=== PATIENT | male | born 1970 | race Caucasian/White ===

== ENCOUNTER 2016-07-09 23:25 | Inpatient (IN) | payer MEDICAID ==
[~2016-07-09] VITALS: Ht 160 cm; Wt 63.5 kg
[2016-07-09 23:42] VITALS: BP 145/110
[2016-07-09] MEDS ORDERED: ORE25 PO (23:50)
--- NOTE | 2016-07-10 00:40 | NUR ---
Patient ambulated to bed 04.
--- NOTE | 2016-07-10 00:53 | NUR ---
Dr. Almendarez evaluating patient at bedside.
--- NOTE | 2016-07-10 00:54 | NUR ---
PATIENT PRESENTS TO ED WITH SOB . PT STATES HE ALSO HAS NOTICED BL LEG EDEMA . DENIES N/V/D; SKIN IS PINK/WARM/DRY; AAOX4 WITH EVEN AND STEADY GAIT; LUNGS CLEAR BL; HR EVEN AND REGULAR; PT DENIES ANY FEVER, CP, SOB, OR COUGH AT THIS TIME; PATIENT STATES PAIN OF 0/10 AT THIS TIME; VSS; PATIENT POSITIONED FOR COMFORT; HOB ELEVATED; BEDRAILS UP X2; BED DOWN. ER MD MADE AWARE OF PT STATUS. FAMILY AT BEDSIDE AT THIS TIME
[2016-07-10] MEDS ORDERED: SODIUM CHLORIDE FLUSH 10 ML SYR IVF ONE (01:00)
[2016-07-10] MEDS ORDERED: ASPIRIN 81 MG TAB.CHEW PO ONE (01:00)
[2016-07-10] MEDS ORDERED: FUROSEMIDE 40 MG/4 ML VIAL IVP ONE (01:00)
[2016-07-10] MEDS ORDERED: NITROGLYCERIN 2% 1 GM PKT TP ONE (01:00)
[2016-07-10] MEDS ORDERED: CAPTOPRIL 12.5 MG TAB PO ONE (01:00)
[2016-07-10 01:17] LABS: BASOPHILS # (AUTO) 0.2 K/uL (0.00-0.22); EOSINOPHILS # (AUTO) 0.1 K/uL (0-0.4); EOSINOPHILS % (AUTO) 1.8 % (0.0-4.0); MONOCYTES # (AUTO) 0.2 K/uL (0.8-1.0)
[2016-07-10 01:20] LABS: BASOPHILS % (AUTO) 2.4 % (0.0-2.0); HEMATOCRIT 42.7 % (36-52); HEMOGLOBIN 13.8 g/dL (12.0-18.0); LYMPHOCYTES # (AUTO) 1.8 K/uL (2.0-11.5); MEAN CORPUSCULAR HEMOGLOBIN 30 pg (27-31); MEAN CORPUSCULAR HGB CONC 32 g/dL (33-37); MEAN CORPUSCULAR VOLUME 92 fL (80-94); MONOCYTES % (AUTO) 3.2 % (1.7-9.3); NEUTROPHILS # (AUTO) 5.3 K/uL (1.8-7.7); NEUTROPHILS % (AUTO) 68.7 % (42.2-75.2); PLATELET COUNT (AUTO) 241 K/uL (140-450); RED BLOOD CELL COUNT(AUTO) 4.66 MIL/uL (4.20-6.10); WHITE BLOOD COUNT (AUTO) 7.6 K/uL (4.8-10.8)
[2016-07-10 01:34] LABS: LYMPHOCYTES % (AUTO) 23.9 % (20.5-51.1)
[2016-07-10 01:36] LABS: ALBUMIN 3.3 g/dL (3.4-5.0); ANION GAP 15.4 (8-16); CALCIUM 8.6 mg/dL (8.5-10.1); CARBON DIOXIDE 25.7 mmol/L (21-32); CREATININE 1.3 mg/dL (0.6-1.3); POTASSIUM 4.1 mmol/L (3.5-5.1); TOTAL BILIRUBIN 1.7 mg/dL (0.0-1.0)
[2016-07-10 01:46] LABS: INR 1.6 (0.8-1.2); PARTIAL THROMBOPLASTIN TIME 28.1 secs (22-35.6)
--- NOTE | 2016-07-10 02:42 | NUR ---
Patient will be admitted to care of DR. RANDALL. Admited to TELE. Will go to room 120B. Belongings list completed. Report to KANE BLAS.
--- NOTE | 2016-07-10 03:01 | NUR ---
Pt report given to KANE BLAS. Transfer of care at this time.
[2016-07-10 03:04] VITALS: BP 147/98
--- NOTE | 2016-07-10 03:04 | NUR ---
RECEIVED REPORT FROM ED RN FOR CONTINUITY OF CARE. PATIENT IS A&OX4 PARAGUAYAN SPEAKING, DISCUSSED PLAN OF CARE WITH PATIENT AND FAMILY MEMBERS AT BEDSIDE, VERBALIZED UNDERSTANDING. SHIFT ASSESSMENT DONE, VS TAKEN, STABLE AT THIS TIME. NO S/S OF RESPIRATORY DISTRESS NOTED ON ROOM AIR. PATIENT DENIES PAIN AT THIS TIME. IV TO RT AC 20 GAUGE PATENT AND FLUSHED. SKIN INTACT, WITH SMALL SCAB TO RT HUBBARD. URINAL AT BEDSIDE. MRSA COLLECTED AND WRISTBANDS APPLIED. SAFETY PRECAUTIONS ENFORCED. PT ORIENTED TO ROOM. CALL LIGHT PLACED WITHIN REACH AND PT ENCOURAGED TO USE FOR ASSISTANCE. WILL CONTINUE TO MONITOR
[2016-07-10] MEDS ORDERED: HYDROcodone/APAP 5/325 MG 1 TAB TAB PO PRN (03:30)
[2016-07-10] MEDS ORDERED: MORPHINE SULFATE 2 MG/ML SYR IVP PRN (03:30)
[2016-07-10] MEDS ORDERED: ACETAMINOPHEN 325 MG TAB PO PRN (03:30)
[2016-07-10] MEDS ORDERED: ONDANSETRON 4 MG/2 ML VIAL IVP PRN (03:30)
[2016-07-10] MEDS ORDERED: ALBUTEROL SULFATE/IPRATROPIU 3 ML SOL IH PRN (03:45)
--- NOTE | 2016-07-10 05:00 | NUR ---
PATIENT IS SLEEPING. NO S/S OF DISTRESS OR DISCOMFORT NOTED. UPDATED PATIENT ON PLAN OF CARE. WILL CONTINUE TO MONITOR.
--- NOTE | 2016-07-10 06:29 | NUR ---
PT UP TO USE RESTROOM, VOIDED. PATIENT DENIES ANY SHORTNESS OF BREATH. CALL LIGHT WITHIN REACH.
--- NOTE | 2016-07-10 07:22 | NUR ---
ENDORSED PATIENT TO DAY RN FOR CONTINUITY OF CARE, PATIENT IS IN STABLE CONDITION.
--- NOTE | 2016-07-10 07:22 | NUR ---
RECEIVED REPORT FROM NIGHT NURSE. PT IS AAOX4 AZERI SPEAKING. ON ROOM AIR, IV TO RIGHT AC 22G SALINE LOCK PATENT AND INTACT. SKIN INTACT. PT STATES NO CHEST PAIN OR SOB AT THIS TIME. INITIAL ASSESSMENT COMPLETED. REVIEWED PLAN OF CARE WITH PT, PT VERBALIZED UNDERSTANDING. ALL SAFETY PRECAUTIONS MET. CALL LIGHT WITHIN REACH. WILL CONTINUE TO MONITOR.
[2016-07-10 07:31] LABS: MAGNESIUM 1.5 mg/dL (1.8-2.4); PHOSPHORUS 4.8 mg/dL (2.5-4.9)
--- NOTE | 2016-07-10 07:43 | NUR ---
PATIENT HAS BEEN SCREENED AND CATEGORIZED MODERATE NUTRITION RISK. PATIENT WILL BE SEEN WITHIN 3-5 DAYS OF ADMISSION. 07/12/16-07/14/[address]
[2016-07-10 08:00] VITALS: BP 154/99
[2016-07-10] MEDS ORDERED: FUROSEMIDE 40 MG/4 ML VIAL IVP SCH (09:00)
[2016-07-10] MEDS ORDERED: MAGNESIUM OXIDE 400 MG TAB PO SCH (09:30)
[2016-07-10] MEDS: CARVEDILOL 3.125 MG TAB PO SCH ×2 (09:35→20:41)
[2016-07-10] MEDS: LISINOPRIL 10 MG TAB PO SCH (09:35)
[2016-07-10] MEDS: HYDROCHLOROTHIAZIDE 25 MG TAB PO SCH (09:35)
--- NOTE | 2016-07-10 09:36 | NUR ---
DUE MEDICATIONS GIVEN, PT STATES NO CHEST PAIN OR SOB. INFORMED PT THAT LUNCH WILL BE HELD TO TO AN US. PT VERBALIZED UNDERSTANDING. ALL NEEDS MET. CALL LIGHT WITHIN REACH.
--- NOTE | 2016-07-10 09:45 | NUR ---
DAILY WT TAKEN 61.5KG
--- NOTE | 2016-07-10 10:05 | NUR ---
ECHO DONE NOTIFIED ABOUT PT EF AT 1037am
--- NOTE | 2016-07-10 11:56 | NUR ---
CHECKED IN ON PT. PT CURRENTLY RESTING IN BED. ALL NEEDS MET. CALL LIGHT WITHIN REACH. WILL CONTINUE TO MONITOR
[2016-07-10 12:00] VITALS: BP 146/87
[2016-07-10 12:05] LABS: APPEARANCE,URINE CLEAR (CLEAR); BILIRUBIN,URINE NEGATIVE (NEGATIVE); BLOOD, URINE TRACE-I (NEGATIVE); COLOR,URINE YELLOW (YELLOW); LEUKOCYTE ESTERASE ,URINE NEGATIVE (NEGATIVE); NITRITE, URINE NEGATIVE (NEGATIVE); PROTEIN,URINE NEGATIVE (NEGATIVE); UGLUCOSE NEGATIVE (NEGATIVE); UROBILINOGEN,URINE 0.2 EU/dL (0.2 - 1)
[2016-07-10 12:12] LABS: AMPHETAMINE, URINE NEG. ng/ml (NEG <=1000); BARBITURATE, URINE NEG. ng/ml (NEG <=200); BENZODIAZEPINE, URINE NEG. ng/mL (NEG <=200); CANNABINOID, URINE NEG. ng/mL (NEG <=50); COCAINE, URINE NEG. ng/mL (NEG <=300); OPIATE, URINE NEG. ng/mL (NEG <=2000); PHENCYCLIDINE SCREEN,URINE NEG. ng/mL (NEG <=25)
[2016-07-10 12:31] LABS: BACTERIA,URINE None Seen /HPF (None Seen); RBC,URINE 0-5 (RARE) /HPF (0-5); SQUAMOUS EPITHELIAL CELL,UR None Seen /LPF (0-3 (FEW)); WBC,URINE NONE SEEN /HPF (0-5)
--- NOTE | 2016-07-10 14:32 | NUR ---
PT CURRENTLY WALKING AROUND ROUND. PT STATES NO CHEST PAIN OR SOB. ALL NEEDS MET. CALL LIGHT WITHIN REACH. WILL CONTINUE TO MONITOR.
[2016-07-10 16:00] VITALS: BP 121/79
--- NOTE | 2016-07-10 16:21 | NUR ---
PT CURRENTLY RESTING IN BED. NO S/S OF RESPIRATORY DISTRESS NOTED. ALL NEEDS MET. CALL LIGHT WITHIN REACH. WILL CONTINUE TO MONITOR.
[2016-07-10] MEDS ORDERED: SPIRONOLACTONE 25 MG TAB PO SCH (18:00)
--- NOTE | 2016-07-10 18:23 | NUR ---
DUE MEDICATION GIVEN. PT CURRENTLY RESTING WATCHING TV. ALL NEEDS MET. CALL LIGHT WITHIN REACH.
--- NOTE | 2016-07-10 19:13 | NUR ---
ENDORSED PLAN OF CARE TO NIGHT NURSE, PT IN STABLE CONDITION.
--- NOTE | 2016-07-10 19:15 | NUR ---
RECEIVED REPORT FROM DAY RN FOR CONTINUITY OF CARE. PATIENT IS A&OX4, DISCUSSED PLAN OF CARE WITH PATIENT VERBALIZED UNDERSTANDING. SHIFT ASSESSMENT DONE, VS TAKEN, STABLE AT THIS TIME. NO S/S OF RESPIRATORY DISTRESS NOTED ON ROOM AIR. PATIENT DENIES PAIN. IV TO RT AC 20 GAUGE PATENT AND FLUSHED. SKIN INTACT.SAFETY PRECAUTIONS ENFORCED. CALL LIGHT PLACED WITHIN REACH. FAMILY MEMBERS AT BEDSIDE. WILL CONTINUE TO MONITOR
[2016-07-10 20:00] VITALS: BP 103/67
[2016-07-10] MEDS: ATORVASTATIN 20 MG TAB PO SCH (20:34)
--- NOTE | 2016-07-10 20:34 | NUR ---
DUE MEDICATION ADMINISTERED, TOLERATED WELL. ALL NEEDS MET AT THIS TIME. WILL CONTINUE TO MONITOR.
--- NOTE | 2016-07-10 22:00 | NUR ---
PATIENT IS SITTING AT EDGE OF BED WATCHING TV. NO S/S OF DISTRESS OR DISCOMFORT NOTED. CALL LIGHT WITHIN REACH.
[2016-07-11] VITALS: BP 107/69
--- NOTE | 2016-07-11 00:03 | NUR ---
VS TAKEN, STABLE. PT UP TO USE THE RESTROOM. CALL LIGHT IN REACH. WILL CONTINUE TO MONITOR.
--- NOTE | 2016-07-11 02:05 | NUR ---
PT IS SLEEPING. NO S/S OF DISTRESS OR DISCOMFORT NOTED. CALL LIGHT WITHIN REACH.
[2016-07-11 04:00] VITALS: BP 140/83
--- NOTE | 2016-07-11 04:22 | NUR ---
VS TAKEN, STABLE. ALL NEEDS MET AT THIS TIME. WILL CONTINUE TO MONITOR.
--- NOTE | 2016-07-11 06:00 | NUR ---
PT IS SITTING UP IN BED, NO S/S IF DISTRESS OR DISCOMFORT AT THIS TIME. CALL LIGHT WITHIN REACH.
[2016-07-11 06:04] LABS: BASOPHILS # (AUTO) 0.1 K/uL (0.00-0.22); BASOPHILS % (AUTO) 1.7 % (0.0-2.0); EOSINOPHILS # (AUTO) 0.3 K/uL (0-0.4); EOSINOPHILS % (AUTO) 4.5 % (0.0-4.0); HEMATOCRIT 40.4 % (36-52); HEMOGLOBIN 13.4 g/dL (12.0-18.0); LYMPHOCYTES # (AUTO) 1.6 K/uL (2.0-11.5); LYMPHOCYTES % (AUTO) 20.2 % (20.5-51.1); MEAN CORPUSCULAR HEMOGLOBIN 30 pg (27-31); MEAN CORPUSCULAR HGB CONC 33 g/dL (33-37); MEAN CORPUSCULAR VOLUME 91 fL (80-94); MONOCYTES # (AUTO) 0.7 K/uL (0.8-1.0); MONOCYTES % (AUTO) 9.1 % (1.7-9.3); NEUTROPHILS % (AUTO) 64.5 % (42.2-75.2); PLATELET COUNT (AUTO) 188 K/uL (140-450); RED BLOOD CELL COUNT(AUTO) 4.45 MIL/uL (4.20-6.10); WHITE BLOOD COUNT (AUTO) 7.7 K/uL (4.8-10.8)
[2016-07-11 06:26] LABS: ANION GAP 10.5 (8-16); CALCIUM 8.6 mg/dL (8.5-10.1); CREATININE 1.1 mg/dL (0.6-1.3); POTASSIUM 3.5 mmol/L (3.5-5.1)
[2016-07-11 06:35] LABS: MAGNESIUM 1.7 mg/dL (1.8-2.4); PHOSPHORUS 4.5 mg/dL (2.5-4.9)
--- NOTE | 2016-07-11 07:29 | NUR ---
ENDORSED PATIENT TO ELIU BLAS FOR CONTINUITY OF CARE, PATIENT IS IN STABLE CONDITION.
--- NOTE | 2016-07-11 07:30 | NUR ---
RECEIVED REPORT FROM WAN MIDDLETON. PT IS SITTING UP IN BED, A/OX4, IV IS ON THE RT AC, PATENT AND INTACT, SKIN IS INTACT, NO S/S OF RESPIRATORY DISTRESS OR DISCOMFORT NOTED, DISCUSSED PLAN OF CARE WITH PT, PT VERBALIZED UNDERSTANDING, SAFETY/FALL PRECAUTIONS IN PLACE, ALL NEEDS ARE MET AT THIS TIME, CALL LIGHT IS WITHIN REACH, WILL CONTINUE TO MONITOR.
[2016-07-11 08:00] VITALS: BP 130/87
[2016-07-11] MEDS ORDERED: DEXTROSE 50% 50 ML SYR IVP PRN (08:15)
[2016-07-11] MEDS ORDERED: INSULIN LISPRO SLIDING SCALE 100 UNITS/ML VIAL SUBQ PRN (08:15)
[2016-07-11] MEDS ORDERED: metFORMIN 500 MG TAB PO SCH ×2 (08:30→17:00)
[2016-07-11] MEDS: HYDROCHLOROTHIAZIDE 25 MG TAB PO SCH (08:41)
[2016-07-11] MEDS: LISINOPRIL 10 MG TAB PO SCH (08:41)
[2016-07-11] MEDS: CARVEDILOL 3.125 MG TAB PO SCH ×2 (08:42→20:20)
[2016-07-11] MEDS: ASPIRIN 81 MG TAB.CHEW PO SCH (08:42)
[2016-07-11] MEDS: SPIRONOLACTONE 25 MG TAB PO SCH (08:42)
--- NOTE | 2016-07-11 08:42 | NUR ---
DUE MEDICATIONS GIVEN, PT TOLERATED WELL. NO S/S OF RESPIRATORY DISTRESS OR DISCOMFORT NOTED, CALL LIGHT WITHIN REACH, WILL CONTINUE TO MONITOR.
[2016-07-11] MEDS ORDERED: MAGNESIUM OXIDE 400 MG TAB PO SCH (09:00)
[2016-07-11 10:08] LABS: HEPATITIS A ANTIBODY IGM Negative (Negative); HEPATITIS B CORE AB TOTAL Negative (Negative); HEPATITIS B CORE, IGM Negative (Negative); HEPATITIS B SURFACE AB Non Reactive (.); HEPATITIS B SURFACE ANTIGEN Negative (Negative); HEPATITIS C VIRUS ANTIBODY <0.1 s/co ratio (0.0-0.9)
--- NOTE | 2016-07-11 10:39 | NUR ---
PT IS STANDING WALKING DOWN THE GERMAN, ALL NEEDS ARE MET AT THIS TIME, WILL CONTINUE TO MONITOR.
[2016-07-11] MEDS: BLOOD GLUCOSE MONITORING 1 DEV DEV FS SCH ×3 (11:54→20:20)
[2016-07-11 12:00] VITALS: BP 106/70
--- NOTE | 2016-07-11 12:15 | NUR ---
PT IS SITTING UP IN BED WATCHING TV, NO S/S OF RESPIRATORY DISTRESS OR DISCOMFORT NOTED, CALL LIGHT WITHIN REACH, WILL CONTINUE TO MONITOR.
--- NOTE | 2016-07-11 14:12 | NUR ---
PT IS SITTING ON CHAIR AT BEDSIDE WATCHING TV, CALL LIGHT WITHIN REACH, WILL CONTINUE TO MONITOR.
[2016-07-11 14:22] LABS: HEPATITIS A ANTIBODY TOTAL Positive (Negative)
[2016-07-11 16:00] VITALS: BP 115/76
--- NOTE | 2016-07-11 16:18 | NUR ---
PT SITTING UP IN BED, FAMILY IS AT BEDSIDE, NO S/S OF RESPIRATORY DISTRESS OR DISCOMFORT NOTED, WILL CONTINUE TO MONITOR.
[2016-07-11] MEDS: metFORMIN 500 MG TAB PO SCH (17:01)
--- NOTE | 2016-07-11 19:06 | NUR ---
ENDORSED PT TO WAN DOMINGO. FOR CONTINUITY OF CARE. PT STABLE AT THIS TIME.
--- NOTE | 2016-07-11 19:28 | NUR ---
RECEIVED REPORT FROM WAN NOWAK, AT BEDSIDE. INITIAL ASSESSMENT AND BODY CHECK DONE. PATIENT AAO X 4, ABLE TO FOLLOW COMMAND AND MAKE NEEDS KNOWN AND AMBULATORY BY SELF WITH STEADY GAIT. PATIENT CURRENTLY SITTING UP ON THE BED AND TALKING TO HIS FAMILY. NO S/S OF DISTRESS OR SOB NOTED. SKIN WARM/DRY TO TOUCH WITH NORMAL COLOR AND INTACT. DENIED OF ANY PAIN/DISCOMFORT AT THIS TIME. DISCUSSED PLAN OF CARE, PAIN MANAGEMENT AND MEDICATION REGIMEN WITH PATIENT/FAMILY AND ALL VERBALIZED UNDERSTANDING. PLACED PATIENT ON SAFETY PRECAUTIONS AND WILL CONTINUE TO MONITOR. CALL LIGHT LEFT WITHIN REACH.
[2016-07-11 19:32] VITALS: BP 117/84
[2016-07-11] MEDS: ATORVASTATIN 20 MG TAB PO SCH (20:20)
--- NOTE | 2016-07-11 21:00 | NUR ---
ADMINISTERED DUE MEDICATIONS MD'S ORDERED WITH EDUCATION GIVEN. PATIENT COMPLYING WITH MEDICATIONS AND TOLERATED WELL. KEPT PATIENT IN COMFORTABLE POSITION/WARM AND WILL CONTINUE TO MONITOR.
--- NOTE | 2016-07-11 22:00 | NUR ---
ROUNDS MADE, SEEN PATIENT RESTED COMFORTABLY IN BED WITHOUT S/S OF DISTRESS NOTED. WILL CONTINUE TO MONITOR.
[2016-07-12] VITALS: BP 111/69
--- NOTE | 2016-07-12 00:17 | NUR ---
PATIENT ASLEEP QUIETLY IN BED, EASILY AROUSED AND REMAINED IN STABLE CONDITION. WILL CONTINUE TO MONITOR.
--- NOTE | 2016-07-12 03:58 | NUR ---
PATIENT IS CLINICALLY STABLE WITH UNCHANGED V/S AND NO ANY COMPLAINT MADE. WILL CONTINUE TO MONITOR.
[2016-07-12 04:00] VITALS: BP 120/83
[2016-07-12] MEDS: BLOOD GLUCOSE MONITORING 1 DEV DEV FS SCH ×2 (05:35→11:30)
[2016-07-12 06:19] LABS: BASOPHILS # (AUTO) 0.1 K/uL (0.00-0.22); BASOPHILS % (AUTO) 1.8 % (0.0-2.0); EOSINOPHILS # (AUTO) 0.4 K/uL (0-0.4); EOSINOPHILS % (AUTO) 5.8 % (0.0-4.0); HEMATOCRIT 38.7 % (36-52); HEMOGLOBIN 12.9 g/dL (12.0-18.0); LYMPHOCYTES # (AUTO) 1.9 K/uL (2.0-11.5); LYMPHOCYTES % (AUTO) 29.3 % (20.5-51.1); MEAN CORPUSCULAR HEMOGLOBIN 30 pg (27-31); MEAN CORPUSCULAR HGB CONC 33 g/dL (33-37); MEAN CORPUSCULAR VOLUME 90 fL (80-94); MONOCYTES # (AUTO) 0.6 K/uL (0.8-1.0); NEUTROPHILS # (AUTO) 3.5 K/uL (1.8-7.7); NEUTROPHILS % (AUTO) 54.1 % (42.2-75.2); PLATELET COUNT (AUTO) 189 K/uL (140-450); RED BLOOD CELL COUNT(AUTO) 4.31 MIL/uL (4.20-6.10); RED CELL DISTRIBUTION WIDTH 14.8 % (11.6-13.7); WHITE BLOOD COUNT (AUTO) 6.5 K/uL (4.8-10.8)
[2016-07-12 06:46] LABS: MAGNESIUM 1.7 mg/dL (1.8-2.4); PHOSPHORUS 4.3 mg/dL (2.5-4.9)
--- NOTE | 2016-07-12 07:00 | NUR ---
PATIENT RESTED WELL THROUGHOUT THE SHIFT AND REMAINED IN STABLE CONDITION WITHOUT APPARENT DISTRESS NOTED. ENDORSED PLAN OF CARE TO WAN NOWAK.
--- NOTE | 2016-07-12 07:10 | NUR ---
RECEIVED REPORT FROM WAN DOMINGO. PT IS A/OX4, SKIN INTACT, IV RT AC, PATENT AND INTACT, NO S/S OF RESPIRATORY DISTRESS OR DISCOMFORT NOTED, DISCUSSED PLAN OF CARE WITH PT, PT VERBALIZED UNDERSTANDING, FALL/SAFETY PRECAUTIONS IN PLACE, NO S/S OF RESPIRATORY DISTRESS OR DISCOMFORT NOTED, CALL LIGHT WITHIN REACH, WILL CONTINUE TO MONITOR.
[2016-07-12 07:42] LABS: ANION GAP 11.2 (8-16); CALCIUM 8.6 mg/dL (8.5-10.1); CARBON DIOXIDE 31.1 mmol/L (21-32); CREATININE 1.1 mg/dL (0.6-1.3); POTASSIUM 4.3 mmol/L (3.5-5.1)
[2016-07-12 08:00] VITALS: BP 120/84
[2016-07-12] MEDS: HYDROCHLOROTHIAZIDE 25 MG TAB PO SCH (09:08)
[2016-07-12] MEDS: metFORMIN 500 MG TAB PO SCH (09:08)
[2016-07-12] MEDS: ASPIRIN 81 MG TAB.CHEW PO SCH (09:08)
[2016-07-12] MEDS: CARVEDILOL 3.125 MG TAB PO SCH (09:09)
[2016-07-12] MEDS: LISINOPRIL 10 MG TAB PO SCH (09:09)
[2016-07-12] MEDS: SPIRONOLACTONE 25 MG TAB PO SCH (09:10)
--- NOTE | 2016-07-12 09:30 | NUR ---
PT SITTING IN BED WATCHING TV.
--- NOTE | 2016-07-12 11:30 | NUR ---
PT SITTING IN BED, FAMILY IS AT BEDSIDE, CALL LIGHT WITHIN REACH, WILL CONTINUE TO MONITOR.
[2016-07-12 12:00] VITALS: BP 117/72
[2016-07-12] MEDS ORDERED: CARV3.122 PO (13:22)
[2016-07-12] MEDS ORDERED: ASPI81CT27 PO (13:22)
[2016-07-12] MEDS ORDERED: SPIR25TA PO (13:22)
[2016-07-12] MEDS ORDERED: METF500T4 PO (13:22)
[2016-07-12] MEDS ORDERED: ATOR20TA40 PO (13:22)
[2016-07-12] MEDS ORDERED: LISI10TA11 PO (13:22)
--- NOTE | 2016-07-12 13:45 | NUR ---
PT SITTING IN BED, TALKING TO FAMILY MEMBER, NO S/S OF RESPIRATORY DISTRESS OR DISCOMFORT NOTED, CALL LIGHT WITHIN REACH, WILL CONTINUE TO MONITOR.
[2016-07-12] MEDS ORDERED: MAGNESIUM OXIDE 400 MG TAB PO SCH (14:42)
--- NOTE | 2016-07-12 15:30 | NUR ---
PT STABLE UPON DISCHARGE, ID WRIST REMOVED, IV REMOVED, CATHETER TIP INTACT.
== END 2016-07-12 15:00 | disposition home or self-care (01) | DRG 194 ==
LOC: MED 23:25 → MTU 07-10 02:17
PROVIDERS: ADMIT Family Medicine; ATTEND Family Medicine
DX: I11.0 Hypertensive heart disease with heart failure (principal); N17.0 Acute kidney failure with tubular necrosis; E44.0 Moderate protein-calorie malnutrition; E11.65 Type 2 diabetes mellitus with hyperglycemia; E83.42 Hypomagnesemia; D68.69 Other thrombophilia; I50.43 Acute on chronic combined systolic (congestive) and diastolic (congestive) heart failure; E80.6 Other disorders of bilirubin metabolism; I16.0 Hypertensive urgency; F10.21 Alcohol dependence, in remission; R74.0 Nonspecific elevation of levels of transaminase and lactic acid dehydrogenase [LDH]; I42.6 Alcoholic cardiomyopathy; Z79.899 Other long term (current) drug therapy; Z68.24 Body mass index [BMI] 24.0-24.9, adult
CPT/HCPCS: 36415; 71010; 76705; 80048; 80053; 80305; 81001; 82948; 83036; 83735; 83880; 84100; 84484; 85025; 85610; 85730; 86704; 86706; 86708; 86709; 86803; 87081; 87340; 93005; 93925; 93970; 96374; 99285; J1815; J1940; Q0092

== ENCOUNTER 2018-12-25 00:49 | Inpatient (IN) | payer MEDICAID ==
[~2018-12-25] VITALS: Ht 160 cm; Wt 72.6 kg
[~2018-12-25 00:49] MED LIST: ASPI81CT95 PO; ATOR20TA40 PO; CARV3.122 PO; LISI10TA11 PO; METF-988 PO; ORE25 PO; SPIR25TA PO
[2018-12-25 00:53] VITALS: BP 117/71
--- NOTE | 2018-12-25 01:02 | NUR ---
PT TAKEN TO BED 2
[2018-12-25] MEDS ORDERED: SODIUM CHLORIDE FLUSH 10 ML SYR IVF STA (01:04)
--- NOTE | 2018-12-25 01:10 | NUR ---
48Y MALE, BIB FAMILY TO ED C/O DIFFICULTY BREATHING X1 WEEK AND WORSEN TODAY STATING HE FEELS LIKE HE'S SUFFOCATING WHEN HE TRIES TO BREATHE. PT REPORTED HX HTN/CHF AND HAS NOT TAKEN HIS MEDICATIONS FOR 2-3 MONTHS. PT DENIES N/V/DIARRHEA/CONSTIPATION. DENIES FEVER/CHILLS, NO C/O PAIN. PT AAOX4, RR EVEN UNLABORED WITH O2 SATURATION AT 98%. BILAT LUNGS CLEAR TO AUSCULATATION. GCS 15, EDMD MADE AWARE,WILL CONTINUE TO MONITOR CLOSELY, BED LOCKED IN LOWEST POSITION, SIDERAIL UPX1.
--- NOTE | 2018-12-25 01:14 | NUR ---
EKG PERFORMED AT BEDSIDE
[2018-12-25 01:31] LABS: BASOPHILS # (AUTO) 0.1 K/uL (0.00-0.22); EOSINOPHILS # (AUTO) 0.2 K/uL (0-0.4); EOSINOPHILS % (AUTO) 2.9 % (0.0-4.0); HEMATOCRIT 42.4 % (36-52); HEMOGLOBIN 14.4 g/dL (12.0-18.0); LYMPHOCYTES # (AUTO) 2.3 K/uL (2.0-11.5); LYMPHOCYTES % (AUTO) 34.8 % (20.5-51.1); MEAN CORPUSCULAR HEMOGLOBIN 32 pg (27-31); MEAN CORPUSCULAR HGB CONC 34 g/dL (33-37); MEAN CORPUSCULAR VOLUME 95.6 fL (80-94); MONOCYTES # (AUTO) 0.4 K/uL (0.8-1.0); MONOCYTES % (AUTO) 5.7 % (1.7-9.3); NEUTROPHILS # (AUTO) 3.7 K/uL (1.8-7.7); NEUTROPHILS % (AUTO) 55.6 % (42.2-75.2); PLATELET COUNT (AUTO) 171 K/uL (140-450); RED BLOOD CELL COUNT(AUTO) 4.43 MIL/uL (4.20-6.10); RED CELL DISTRIBUTION WIDTH 13.4 % (11.6-13.7); WHITE BLOOD COUNT (AUTO) 6.7 K/uL (4.8-10.8)
[2018-12-25 01:43] LABS: ALBUMIN 3.6 g/dL (3.4-5.0); ANION GAP 14.2 (8-16); CARBON DIOXIDE 26.9 mmol/L (21-32); CREATININE 1.1 mg/dL (0.7-1.3); POTASSIUM 4.1 mmol/L (3.5-5.1); TOTAL BILIRUBIN 0.8 mg/dL (0.0-1.0)
--- NOTE | 2018-12-25 02:45 | NUR ---
Keli martinez in ED - 12/25/18 at 0259 by [facility] AT BEDSIDE.
[2018-12-25] MEDS ORDERED: HYDROcodone/APAP 7.5/325 MG 1 TAB PO PRN (03:25)
[2018-12-25] MEDS ORDERED: DOCUSATE SODIUM 100 MG GELCAP PO PRN (03:25)
[2018-12-25] MEDS ORDERED: MORPHINE SULFATE 2 MG/ML SYR IVP PRN (03:25)
[2018-12-25] MEDS ORDERED: ONDANSETRON 4 MG/2 ML VIAL IM/IVP PRN (03:25)
[2018-12-25] MEDS ORDERED: ACETAMINOPHEN 325 MG TAB PO PRN (03:25)
[2018-12-25] MEDS ORDERED: MORPHINE SULFATE 2 MG/ML SYR IV PRN (03:50)
[2018-12-25] MEDS ORDERED: NITROGLYCERIN 0.4 MG TAB SL PRN (03:50)
--- NOTE | 2018-12-25 03:50 | NUR ---
RECEIVED BEDSIDE REPORT FROM ED RN MARGI, FOR PT'S CONTINUITY OF CARE. PATIENT TRANSPORTED VIA GURNEY, AMBULATED TO BEDSIDE, ALERT, AWAKE, ORIENTED X 4, BENGALI SPEAKING BUT UNDERSTANDS A LITTLE BELARUSIAN, IS ON ROOM AIR, HAS RIGHT AC 20G SALINE LOCK, SKIN IS INTACT, PT DENIES PAIN AT THIS TIME. VS CHECKED AND CHARTED. EXPLAINED TO PT OPERATIONS SPECIALISTS ROUTINE, PT VERBALIZED UNDERSTANDING. BED IS ON LOW POSITION, SIDE RAILS ARE UP, AND CALL LIGHT IS WITHIN REACH. WILL MONITOR THROUGHOUT SHIFT.
--- NOTE | 2018-12-25 03:50 | NUR ---
Patient ADMITTED UNDER THE CARE OF DR. Govind CASTLE TO TELEMETRY UNIT ROOM 111B, BELONGINGS LIST COMPLETED. PT VSS, TRANSPORTED VIA GURNEY. BEDSIDE REPORT GIVEN TO WAN MARINA.
[2018-12-25 04:00] VITALS: BP 149/106
[2018-12-25] MEDS ORDERED: FUROSEMIDE 40 MG/4 ML VIAL IVP SCH (04:00)
--- NOTE | 2018-12-25 04:00 | NUR ---
PT COLLECTED URINE. SENT TO LAB.
[2018-12-25 04:03] LABS: PROTHROMBIN TIME 10.2 secs (10.8-13.4)
[2018-12-25] MEDS: NACL 0.9% 500 ML IV SCH (04:13)
--- NOTE | 2018-12-25 04:15 | NUR ---
ADMINISTERED SCHEDULED IV FLUID AND IV PUSH MEDICATION ORDERED. IV SITE PATENT AND INTACT. WILL CONTINUE TO MONITOR PT.
[2018-12-25] MEDS ORDERED: INSULIN LISPRO SLIDING SCALE 100 UNITS/ML VIAL SUBQ PRN (04:30)
[2018-12-25] MEDS ORDERED: DEXTROSE 50% 50 ML SYR IVP PRN (04:30)
[2018-12-25] MEDS ORDERED: CARV3.12 PO (05:00)
[2018-12-25] MEDS ORDERED: ATOR40TA40 PO (05:00)
[2018-12-25] MEDS ORDERED: ASPI-1718 PO (05:00)
[2018-12-25] MEDS ORDERED: SPIR25TA21 PO (05:00)
[2018-12-25] MEDS ORDERED: LISI10TA11 PO (05:00)
[2018-12-25 05:08] LABS: MAGNESIUM 1.9 mg/dL (1.8-2.4); PHOSPHORUS 4.2 mg/dL (2.5-4.9)
[2018-12-25 05:09] LABS: THYROID STIMULATING HORMONE 8.53 uIU/mL (0.34-3.74)
[2018-12-25] MEDS ORDERED: cefTRIAXone 1,000 MG VIAL ONE (05:42)
--- NOTE | 2018-12-25 06:15 | NUR ---
BLOOD GLUCOSE CHECKED AND CHARTED. NO COVERAGE NEEDED. PT HAS NO REACTION WITH IV CEFTRIAXONE 1ST DOSE. PT DENIES ANY PAIN AT THIS TIME. WILL ENDORSE TO AM SHIFT RN FOR PT'S CONTINUITY OF CARE.
[2018-12-25] MEDS: BLOOD GLUCOSE MONITORING 1 DEV DEV FS SCH ×4 (06:26→20:54)
--- NOTE | 2018-12-25 07:10 | NUR ---
RECEIVED BEDSIDE REPORT FROM THE CUSTOMIZER NURSE SALAS; PT IS ASLEEP AT THIS TIME, NO S/S OF ACUTE DISTRESS OR SOB NOTED. PT IS ON ROOM AIR. SKIN IS INTACT. IV SITE IS NOTED ON THE R AC 20 G, INFUSING NS 20 ML/HR. PT IS AMBULATORY AND ABLE TO MAKE NEEDS KNOWN. CALL LIGHT IS WITHIN REACH, WILL CONTINUE TO MONITOR.
--- NOTE | 2018-12-25 07:44 | NUR ---
PATIENT HAS BEEN SCREENED AND CATEGORIZED MODERATE NUTRITION RISK. PATIENT WILL BE SEEN WITHIN 3-5 DAYS OF ADMISSION. 12/27/[address]
[2018-12-25 08:00] VITALS: BP 136/94
--- NOTE | 2018-12-25 08:08 | NUR ---
THE FIELD MACHINIST NOTIFIED ME THAT SHE CAME TO DO PT'S ABD US, BUT THE PT HAD ALREADY EATEN HIS BREAKFAST. SHE ASKED TO HAVE HIM NPO FOR LUNCH SO THAT SHE CAN DO HIS US AROUND 2:00 - 2:30 PM. RESIDENT NOTIFIED TO PLACE PT NPO FOR LUNCH.
[2018-12-25 08:46] LABS: BARBITURATE, URINE NEGATIVE ng/ml (NEG <=200); BENZODIAZEPINE, URINE NEGATIVE ng/mL (NEG <=200); CANNABINOID, URINE POSITIVE ng/mL (NEG <=50); COCAINE, URINE NEGATIVE ng/mL (NEG <=300); OPIATE, URINE NEGATIVE ng/mL (NEG <=2000); PHENCYCLIDINE SCREEN,URINE NEGATIVE ng/mL (NEG <=25)
[2018-12-25] MEDS: SPIRONOLACTONE 25 MG TAB PO SCH (08:58)
[2018-12-25] MEDS: CARVEDILOL 3.125 MG TAB PO SCH ×2 (08:58→17:53)
[2018-12-25] MEDS: LISINOPRIL 10 MG TAB PO SCH (08:58)
[2018-12-25] MEDS: ASPIRIN 81 MG TAB.CHEW PO SCH (08:58)
[2018-12-25] MEDS ORDERED: ASPIRIN 81 MG TAB.CHEW PO SCH (09:00)
[2018-12-25] MEDS ORDERED: LISINOPRIL 5 MG TAB PO SCH (09:00)
[2018-12-25] MEDS ORDERED: METOPROLOL 50 MG TAB PO SCH (09:00)
[2018-12-25] MEDS ORDERED: CARVEDILOL 3.125 MG TAB PO SCH (09:00)
[2018-12-25] MEDS ORDERED: FUROSEMIDE 20 MG/2 ML VIAL IVP SCH (09:00)
[2018-12-25] MEDS ORDERED: SPIRONOLACTONE 25 MG PO SCH (09:00)
--- NOTE | 2018-12-25 09:07 | NUR ---
AM MEDS ADMINISTERED, PT TOLERATED WELL
[2018-12-25 09:19] LABS: APPEARANCE,URINE CLEAR (CLEAR); BILIRUBIN,URINE NEGATIVE (NEGATIVE); BLOOD, URINE NEGATIVE (NEGATIVE); COLOR,URINE YELLOW (YELLOW); LEUKOCYTE ESTERASE ,URINE NEGATIVE (NEGATIVE); NITRITE, URINE NEGATIVE (NEGATIVE); UGLUCOSE NEGATIVE (NEGATIVE)
--- NOTE | 2018-12-25 09:45 | NUR ---
PT SEEN BY DR. DOMINGUEZ
[2018-12-25 09:53] LABS: RBC,URINE 0 /HPF (0-5); WBC,URINE 0-5 /HPF (0-5)
--- NOTE | 2018-12-25 10:15 | NUR ---
WAS NOTIFIED BY LAB THAT PT'S LACTIC ACID IS 2.1. DR DOMINGUEZ IS AWARE.
--- NOTE | 2018-12-25 10:55 | NUR ---
PT IS SITTING UP IN BED, NO DISTRESS NOTED, VISITING WITH A RELATIVE. WILL CONTINUE TO MONITOR.
[2018-12-25 12:00] VITALS: BP 126/92
--- NOTE | 2018-12-25 14:45 | NUR ---
PT IS SITTING UP IN THE BED, NO DISTRESS NOTED. PT CONTINUING TO BE NPO FOR THE ABD ULTRASOUND.
[2018-12-25 16:00] VITALS: BP 131/88
--- NOTE | 2018-12-25 16:00 | NUR ---
PT IS HAVING ABD ULTRASOUND AT THIS TIME
[2018-12-25 17:41] LABS: CHOL/HDL RATIO 5.9 (1-4.5)
--- NOTE | 2018-12-25 19:20 | NUR ---
PT ENDORSED TO STUDY COORDINATOR NURSE IN STABLE CONDITION.
--- NOTE | 2018-12-25 19:25 | NUR ---
RECEIVED BEDSIDE REPORT FROM AM SHIFT RN OMAIRA, FOR PT'S CONTINUITY OF CARE. PT IS AWAKE, ALERT, ORIENTED X 4, WITH FAMILY MEMBERS AT BEDSIDE. PT IS ON ROOM AIR, IS ON FOAM GUN OPERATOR, HAS RIGHT AC 2G INFUSING WITH NS AT 20ML/HR, AMBULATING WITH NO DISTRESS, AND DENIES PAIN AT THIS TIME. PT TEACHING GIVEN TO PT AND FAMILY MEMBERS, BOTH VERBALIZED UNDERSTANDING. BED IS ON LOW POSITION, SIDE RAILS ARE UP, AND CALL LIGHT IS WITHIN REACH. EXPLAINED TO PT AND FAMILY MEMBERS POST ACUTE CARE NURSE PRACTITIONER ROUTINE AND THEY VERBALIZED UNDERSTANDING. WILL MONITOR PT THROUGHOUT SHIFT.
[2018-12-25 20:00] VITALS: BP 128/81
--- NOTE | 2018-12-25 20:50 | NUR ---
BLOOD GLUCOSE CHECKED AND CHARTED. NO COVERAGE NEEDED. ADMINISTERED SCHEDULED PO MEDICATION ORDERED. PT LYING DOWN AWAKE DENIES ANY PAIN AT THIS TIME. WILL CONTINUE TO MONITOR PT.
[2018-12-25] MEDS: ATORVASTATIN 20 MG TAB PO SCH (20:52)
[2018-12-25] MEDS ORDERED: SIMVASTATIN 40 MG TAB PO SCH (21:00)
[2018-12-25] MEDS ORDERED: NON-FORMULARY ITEM (Atorvastatin Calcium 1 TAB) PO SCH (21:00)
--- NOTE | 2018-12-25 23:26 | NUR ---
MADE ROUNDS. PT LYING DOWN ASLEEP WITH NO SIGNS OF DISTRESS. WILL CONTINUE TO MONITOR PT.
[2018-12-26] VITALS: BP 122/82
--- NOTE | 2018-12-26 00:20 | NUR ---
PT ASLEEP, WOKE UP FOR VITAL SIGNS CHECK. VS CHECKED AND CHARTED. PT DENIES PAIN AT THIS TIME. WILL CONTINUE TO MONITOR PT.
--- NOTE | 2018-12-26 02:15 | NUR ---
MADE ROUNDS. PT LYING DOWN ASLEEP, WITH NO SIGNS OF DISTRESS. WILL CONTINUE TO MONITOR PT.
[2018-12-26] MEDS: NACL 0.9% 500 ML IV SCH (03:27)
--- NOTE | 2018-12-26 03:32 | NUR ---
HUNG NEW IV FLUID BAG ORDERED. VS CHECKED. PT DENIES ANY PAIN AT THIS TIME. WILL CONTINUE TO MONITOR PT.
[2018-12-26 04:00] VITALS: BP 122/84
[2018-12-26] MEDS: BLOOD GLUCOSE MONITORING 1 DEV DEV FS SCH ×4 (05:45→19:58)
--- NOTE | 2018-12-26 05:45 | NUR ---
BLOOD GLUCOSE CHECKED AND CHARTED. NO COVERAGE NEEDED AT THIS TIME. LAB PERSONNEL AT BEDSIDE, PT TEACHING GIVEN REGARDING BLOOD GLUCOSE AND LABS. PT VERBALIZED UNDERSTANDING.
[2018-12-26 05:47] LABS: BASOPHILS % (AUTO) 0.7 % (0.0-2.0); EOSINOPHILS # (AUTO) 0.3 K/uL (0-0.4); EOSINOPHILS % (AUTO) 4.3 % (0.0-4.0); HEMATOCRIT 43.4 % (36-52); HEMOGLOBIN 14.5 g/dL (12.0-18.0); LYMPHOCYTES # (AUTO) 1.5 K/uL (2.0-11.5); LYMPHOCYTES % (AUTO) 23.9 % (20.5-51.1); MEAN CORPUSCULAR HEMOGLOBIN 32 pg (27-31); MEAN CORPUSCULAR HGB CONC 33 g/dL (33-37); MEAN CORPUSCULAR VOLUME 95.4 fL (80-94); MONOCYTES # (AUTO) 0.5 K/uL (0.8-1.0); NEUTROPHILS # (AUTO) 4.1 K/uL (1.8-7.7); NEUTROPHILS % (AUTO) 63.1 % (42.2-75.2); PLATELET COUNT (AUTO) 175 K/uL (140-450); RED BLOOD CELL COUNT(AUTO) 4.55 MIL/uL (4.20-6.10); RED CELL DISTRIBUTION WIDTH 13.3 % (11.6-13.7); WHITE BLOOD COUNT (AUTO) 6.4 K/uL (4.8-10.8)
--- NOTE | 2018-12-26 06:16 | NUR ---
PT LYING DOWN ASLEEP WITH NO SIGNS OF DISTRESS. WILL ENDORSE TO AM SHIFT RN FOR PT'S CONTINUITY OF CARE.
[2018-12-26 06:33] LABS: ANION GAP 14.5 (8-16); CARBON DIOXIDE 26.5 mmol/L (21-32); CREATININE 1.1 mg/dL (0.7-1.3)
--- NOTE | 2018-12-26 07:20 | NUR ---
RECEIVED ENDORSEMENT FROM APPLIANCE ASSEMBLER NURSE. PATIENT IS AAOX4, ESTONIAN SPEAKING. RESPIRATIONS ARE EVEN AND UNLABORED ON ROOM AIR. PATIENT DENIES ANY PAIN AT THIS TIME. RIGHT AC 20G IV INTACT, PATENT, AND INFUSING IVF. PLAN OF CARE WAS REVIEWED WITH PATIENT, PATIENT VERBALIZED UNDERSTANDING. SAFETY MEASURES IN PLACE, CALL LIGHT WITHIN REACH.
[2018-12-26 08:00] VITALS: BP 133/94
[2018-12-26 08:10] LABS: T4 (THYROXINE) 5.5 ug/dL (4.5-12.0)
[2018-12-26] MEDS: ASPIRIN 81 MG TAB.CHEW PO SCH (08:19)
[2018-12-26] MEDS: SPIRONOLACTONE 25 MG TAB PO SCH (08:19)
[2018-12-26] MEDS: CARVEDILOL 3.125 MG TAB PO SCH ×2 (08:20→17:15)
[2018-12-26] MEDS: LISINOPRIL 10 MG TAB PO SCH (08:20)
[2018-12-26] MEDS: FUROSEMIDE 20 MG/2 ML VIAL IVP SCH (08:20)
--- NOTE | 2018-12-26 08:21 | NUR ---
ADMINISTERED SCHEDULED MEDICATIONS. PATIENT TOLERATED WELL, NO OTHER NEEDS AT THIS TIME.
--- NOTE | 2018-12-26 10:20 | NUR ---
PATIENT RESTING IN BED. FAMILY IS PRESENT AT BEDSIDE. NO C/O OF PAIN AT THIS TIME. NO OTHER NEEDS AT THIS TIME, WILL CONTINUE TO MONITOR.
[2018-12-26 12:00] VITALS: BP 111/72
--- NOTE | 2018-12-26 12:50 | NUR ---
PATIENT RESTING IN BED. DENIES ANY PAIN. NO OTHER NEEDS AT THIS TIME, WILL CONTINUE TO MONITOR.
--- NOTE | 2018-12-26 14:06 | NUR ---
PATIENT RESTING IN BED. DENIES ANY PAIN, NO OTHER NEEDS AT THIS TIME. WILL CONTINUE TO MONITOR.
[2018-12-26 16:00] VITALS: BP 113/75
--- NOTE | 2018-12-26 16:33 | NUR ---
PATIENT RESTING IN BED, DENIES ANY PAIN. NO OTHER NEEDS AT THIS TIME, WILL CONTINUE TO MONITOR.
--- NOTE | 2018-12-26 17:15 | NUR ---
ADMINISTERED SCHEDULED MEDICATION. PATIENT TOLERATED WELL. NO OTHER NEEDS AT THIS TIME, WILL CONTINUE TO MONITOR.
--- NOTE | 2018-12-26 19:17 | NUR ---
ENDORSED TO RETAIL MORTGAGE BANKER NURSE FOR CONTINUITY OF CARE. PATIENT IS STABLE AT THIS TIME.
--- NOTE | 2018-12-26 19:18 | NUR ---
RECEIVED BEDSIDE REPORT FROM DAY RN. PT IS AAO X4 ON ROOM AIR. RESPIRATIONS ARE EQUAL AND UNLABORED BREATHING. IV ON RAC 20G NS INFUSING AT 20ML/H. SKIN INTACT. PT AMBULATORY WITH STEADY GAIT. BELARUSIAN SPEAKING ONLY. ABLE TO MAKE NEEDS KNOWN. POC DISCUSSED WITH PT. PT VERBALIZED UNDERSTANDING. FAMILY IS AT BEDSIDE. CALL LIGHT IS WITHIN REACH. WILL CONTINUE TO MONITOR.
[2018-12-26 20:00] VITALS: BP 110/71
[2018-12-26] MEDS: ATORVASTATIN 20 MG TAB PO SCH (20:50)
--- NOTE | 2018-12-26 20:50 | NUR ---
VITAL SIGNS ARE WITHIN NORMAL LIMITS. BLOOD SUGAR IS 124 NO COVERAGE NEEDED. JULISSA MEDICATIONS GIVEN. PT TOLERATED WELL. ALL NEEDS MET AT THIS TIME. WILL CONTINUE TO MONITOR.
--- NOTE | 2018-12-26 22:00 | NUR ---
PATIENT IS WATCHING TV. SITTING AT EDGE OF BED. DENIES ANY PAIN. ALL NEEDS MET AT THIS TIME. CALL LIGHT IS WITHIN REACH. WILL CONTINUE TO MONITOR.
[2018-12-27] VITALS (7 sets, daily range): BP systolic 102–130; BP diastolic 61–84
--- NOTE | 2018-12-27 00:08 | NUR ---
VITAL SIGNS ARE WITHIN NORMAL LIMITS. PT DENIES ANY PAIN. ALL NEEDS MET AT THIS TIME. WILL CONTINUE TO MONITOR.
[2018-12-27] MEDS: NACL 0.9% 500 ML IV SCH (02:02)
--- NOTE | 2018-12-27 02:08 | NUR ---
PATIENT IS SLEEPING COMFORTABLY IN BED. CHEST RISE AND FALL. CALL LIGHT IS WITHIN REACH.
--- NOTE | 2018-12-27 04:00 | NUR ---
VITAL SIGNS ARE WITHIN NORMAL LIMITS. ALL NEEDS MET AT THIS TIME.
[2018-12-27 06:21] LABS: BASOPHILS % (AUTO) 0.7 % (0.0-2.0); EOSINOPHILS # (AUTO) 0.3 K/uL (0-0.4); EOSINOPHILS % (AUTO) 4.3 % (0.0-4.0); HEMATOCRIT 43.1 % (36-52); HEMOGLOBIN 14.4 g/dL (12.0-18.0); LYMPHOCYTES # (AUTO) 1.7 K/uL (2.0-11.5); LYMPHOCYTES % (AUTO) 24.7 % (20.5-51.1); MEAN CORPUSCULAR HEMOGLOBIN 32 pg (27-31); MEAN CORPUSCULAR HGB CONC 33 g/dL (33-37); MEAN CORPUSCULAR VOLUME 96.1 fL (80-94); MONOCYTES # (AUTO) 0.6 K/uL (0.8-1.0); MONOCYTES % (AUTO) 8.5 % (1.7-9.3); NEUTROPHILS # (AUTO) 4.3 K/uL (1.8-7.7); NEUTROPHILS % (AUTO) 61.8 % (42.2-75.2); PLATELET COUNT (AUTO) 173 K/uL (140-450); RED BLOOD CELL COUNT(AUTO) 4.48 MIL/uL (4.20-6.10); RED CELL DISTRIBUTION WIDTH 13.2 % (11.6-13.7)
--- NOTE | 2018-12-27 06:26 | NUR ---
BLOOD SUGAR IS 128 NO COVERAGE NEEDED. CALL LIGHT IS WITHIN REACH.
--- NOTE | 2018-12-27 07:27 | NUR ---
RECEIVED ENDORSEMENT FROM CHARGE NURSE. PATIENT IS AAOX4, UZBEK SPEAKING. RESPIRATIONS ARE EVEN AND UNLABORED ON ROOM AIR. PATIENT DENIES ANY PAIN AT THIS TIME. RIGHT AC 20G IV INTACT, PATENT, AND INFUSING IVF. PLAN OF CARE WAS REVIEWED WITH PATIENT, PATIENT VERBALIZED UNDERSTANDING. SAFETY MEASURES IN PLACE, CALL LIGHT WITHIN REACH.
[2018-12-27] MEDS: BLOOD GLUCOSE MONITORING 1 DEV DEV FS SCH ×4 (07:30→20:14)
--- NOTE | 2018-12-27 07:30 | NUR ---
ENDORSED PT IN STABLE CONDITION.
[2018-12-27 07:47] LABS: ANION GAP 14.1 (8-16); CARBON DIOXIDE 26.2 mmol/L (21-32); CREATININE 1.1 mg/dL (0.7-1.3); POTASSIUM 4.3 mmol/L (3.5-5.1)
[2018-12-27 07:53] LABS: PHOSPHORUS 4.8 mg/dL (2.5-4.9)
[2018-12-27] MEDS: CARVEDILOL 3.125 MG TAB PO SCH ×2 (09:02→17:16)
[2018-12-27] MEDS: FUROSEMIDE 20 MG/2 ML VIAL IVP SCH (09:09)
[2018-12-27] MEDS: SPIRONOLACTONE 25 MG TAB PO SCH (09:12)
[2018-12-27] MEDS: ASPIRIN 81 MG TAB.CHEW PO SCH (09:12)
[2018-12-27] MEDS: LISINOPRIL 10 MG TAB PO SCH (09:14)
--- NOTE | 2018-12-27 09:15 | NUR ---
ADMINISTERED SCHEDULED MEDICATIONS. PATIENT TOLERATED WELL. NO OTHER NEEDS AT THIS TIME.
--- NOTE | 2018-12-27 11:41 | NUR ---
PATIENT RESTING IN BED. DENIES ANY PAIN AT THIS TIME, WILL CONTINUE TO MONITOR.
[2018-12-27 12:08] LABS: HEPATITIS A ANTIBODY IGM Negative (Negative); HEPATITIS B CORE AB TOTAL Negative (Negative); HEPATITIS B SURFACE ANTIBODY Non Reactive (.); HEPATITIS B SURFACE ANTIGEN Negative (Negative)
--- NOTE | 2018-12-27 13:05 | NUR ---
PATIENT SITTING IN BED. PATIENT DENIES ANY PAIN AT THIS TIME. NO OTHER NEEDS AT THIS TIME,WILL CONTINUE TO MONITOR.
--- NOTE | 2018-12-27 15:49 | NUR ---
PATIENT SITTING IN BED. DENIES ANY PAIN AT THIS TIME. NO SIGNS OF DISTRESS AT THIS TIME, WILL CONTINUE TO MONITOR.
--- NOTE | 2018-12-27 17:16 | NUR ---
ADMINISTERED SCHEDULED MEDICATION. PATIENT TOLERATED WELL. PATIENT DENIES ANY PAIN. NO OTHER NEEDS AT THIS TIME, WILL CONTINUE TO MONITOR.
--- NOTE | 2018-12-27 19:16 | NUR ---
ENDORSED TO DEPUTY ADMINISTRATOR NURSE FOR CONTINUITY OF CARE. PATIENT IS STABLE AT THIS TIME.
--- NOTE | 2018-12-27 19:17 | NUR ---
RECEIVED BEDSIDE REPORT FROM DAY RN. PT IS AAO X4 ON ROOM AIR. RESPIRATIONS ARE EQUAL AND UNLABORED BREATHING. IV ON RAC 20G NS INFUSING AT 20ML/H. SKIN INTACT. PT AMBULATORY WITH STEADY GAIT. ICELANDIC SPEAKING ONLY. ABLE TO MAKE NEEDS KNOWN. POC DISCUSSED WITH PT. PT DENIES ANY PAIN OR DISCOMFORT. PT VERBALIZED UNDERSTANDING. FAMILY IS AT BEDSIDE. CALL LIGHT IS WITHIN REACH. WILL CONTINUE TO MONITOR.
[2018-12-27] MEDS: ATORVASTATIN 20 MG TAB PO SCH (20:16)
--- NOTE | 2018-12-27 20:16 | NUR ---
VITAL SIGNS ARE WITHIN NORMAL LIMITS. JULISSA MEDICATIONS WERE GIVEN. PT TOLERATED WELL. ALL NEEDS MET AT THIS TIME. WILL CONTINUE TO MONITOR.
--- NOTE | 2018-12-27 22:14 | NUR ---
PT IS AWAKE CURRENTLY LAYING COMFORTABLY IN BED. CALL LIGHT IS WITHIN REACH. WILL CONTINUE TO MONITOR.
--- NOTE | 2018-12-27 23:48 | NUR ---
PT WITH AN EPISODE OF V TACH LASTING 5 SEC ASYMPTOMATIC VS: 130/[address] MADE AWARE ORDER FOR EKG. WILL CONTINUE TO MONITOR.
[2018-12-28] MEDS ORDERED: POTASSIUM CHLORIDE 10 MEQ TABER PO ONE (00:58)
[2018-12-28] MEDS: NACL 0.9% 500 ML IV SCH (01:34)
--- NOTE | 2018-12-28 02:04 | NUR ---
PATIENT IS SLEEPING COMFORTABLY IN BED. CHEST RISE AND FALL. ALL NEEDS MET AT THIS TIME. CALL LIGHT IS WITHIN REACH.
[2018-12-28 04:00] VITALS: BP 136/80
--- NOTE | 2018-12-28 04:00 | NUR ---
VITAL SIGNS ARE WITHIN NORMAL LIMITS. NO S/S OF DISTRESS. ALL NEEDS MET AT THIS TIME. WILL CONTINUE TO MONITOR.
[2018-12-28] MEDS: BLOOD GLUCOSE MONITORING 1 DEV DEV FS SCH ×3 (06:07→17:12)
--- NOTE | 2018-12-28 06:08 | NUR ---
BLOOD SUGAR IS 118 NO COVERAGE NEEDED. ALL NEEDS MET AT THIS TIME.
[2018-12-28 07:06] LABS: ANION GAP 13.6 (8-16); CARBON DIOXIDE 26.7 mmol/L (21-32); CREATININE 1.1 mg/dL (0.7-1.3); POTASSIUM 4.3 mmol/L (3.5-5.1)
[2018-12-28 07:14] LABS: BASOPHILS # (AUTO) 0.1 K/uL (0.00-0.22); BASOPHILS % (AUTO) 0.8 % (0.0-2.0); EOSINOPHILS # (AUTO) 0.2 K/uL (0-0.4); EOSINOPHILS % (AUTO) 3.1 % (0.0-4.0); HEMATOCRIT 44.5 % (36-52); HEMOGLOBIN 14.7 g/dL (12.0-18.0); LYMPHOCYTES # (AUTO) 1.9 K/uL (2.0-11.5); LYMPHOCYTES % (AUTO) 25.8 % (20.5-51.1); MEAN CORPUSCULAR HEMOGLOBIN 32 pg (27-31); MEAN CORPUSCULAR HGB CONC 33 g/dL (33-37); MEAN CORPUSCULAR VOLUME 95.4 fL (80-94); MONOCYTES # (AUTO) 0.6 K/uL (0.8-1.0); MONOCYTES % (AUTO) 7.6 % (1.7-9.3); NEUTROPHILS # (AUTO) 4.7 K/uL (1.8-7.7); NEUTROPHILS % (AUTO) 62.7 % (42.2-75.2); PLATELET COUNT (AUTO) 190 K/uL (140-450); RED BLOOD CELL COUNT(AUTO) 4.67 MIL/uL (4.20-6.10); RED CELL DISTRIBUTION WIDTH 13.4 % (11.6-13.7); WHITE BLOOD COUNT (AUTO) 7.4 K/uL (4.8-10.8)
--- NOTE | 2018-12-28 07:15 | NUR ---
GAVE BEDSIDE REPORT TO DAY RN. PT ENDORSED IN STABLE CONDITION.
--- NOTE | 2018-12-28 07:16 | NUR ---
RECEIVED BEDSIDE REPORT FROM REFRIGERATION SPECIALIST RNVALERIA. PATIENT SITTING UP IN BED SPEAKING TO ROOMMATE/NEIGHBOR. SPEECH IS CLEAR, RESPIRATIONS ARE CLEAR AND UNLABORED. NO SIGNS OF DISTRESS ON RA. BED IS LOW CALL LIGHT IS IN REACH. IV FLUID IS INFUSING WELL AT 20 M/HR TO LEFT AC 20 GAUGE. WILL CONTINUE TO MONITOR.
[2018-12-28 08:00] VITALS: BP 143/80
[2018-12-28] MEDS: LISINOPRIL 10 MG TAB PO SCH (08:20)
[2018-12-28] MEDS: ASPIRIN 81 MG TAB.CHEW PO SCH (08:20)
[2018-12-28] MEDS: SPIRONOLACTONE 25 MG TAB PO SCH (08:20)
[2018-12-28] MEDS: CARVEDILOL 3.125 MG TAB PO SCH (08:20)
[2018-12-28] MEDS: FUROSEMIDE 20 MG/2 ML VIAL IVP SCH (08:22)
--- NOTE | 2018-12-28 08:34 | NUR ---
ADMINISTERED SCHEDULED MEDICATIONS. PATIENT TOLERATED WELL. PATIENT HAS MULTIPLE BLOOD PRESSURE MEDICATIONS AND CURRENT BP IS 143/89. ADVISED PATIENT THE MEDICATIONS MAY CAUSE DIZZINESS AND TO REPORT IF HE FEELS LIGHTHEADED, AND OT KASH FOR HELP TO AMBULATE TO RESTROOM. PATIENT VERBALIZED UNDERSTANDING. BED LOW, CALL LIGHT IN REACH. WILL CONTINUE TO MONITOR.
[2018-12-28 08:48] LABS: PHOSPHORUS 3.9 mg/dL (2.5-4.9)
--- NOTE | 2018-12-28 10:35 | NUR ---
PATIENT SITTING UP CONVERSING WITH ROOMMATE. NO SIGNS OF DISTRESS ON RA. NO C/O PAIN OR SOB. BED IS LOW, CALL LIGHT IN REACH. ALL NEEDS MET AT THIS TIME.
[2018-12-28 12:00] VITALS: BP 125/82
--- NOTE | 2018-12-28 13:00 | NUR ---
SPOKE TO GAMALIEL AT [phone] ABOUT PATIENT PLAN OF CARE. PATIENT GAVE PERMISSIONS TO SPEAK TO GAMALIEL REGARDING HIS CARE. PATIENT IS PENDING TRANSFER TO [place] FOR AN ANGIOGRAM. WILL UPDATE PATIENT AND GAMALIEL OF THE DETAILS ONCE THEY ARE AVAILABLE TO ME. GAMALIEL AND PATIENT VERBALIZED UNDERSTANDING.
--- NOTE | 2018-12-28 14:15 | NUR ---
PATIENT FAMILY IS AT BEDSIDE REQUESTING TO BE DISCHARGED TODAY. REITERATED PLAN OF CARE: TRANSFER PATIENT TO [facility] FOR ANGIOGRAM AND TO OBTAIN A LIFEVEST TO MONITOR PATIENT ARRHYTHMIAS. PATIENT EJECTION FRACTION IS 10-15% AND HAS HAD SHORT RUNS OF V-TACH ON THE TELE MONITOR IN THE LAST 2 DAYS. DOCTOR AT BEDSIDE, EDUCATED FAMILY ON PATIENT OF THE SEVERITY OF HEART CONDITION AND THE VENTRICULAR ARRHYTHMIAS. PATIENT FAMILY STATES THAT AN ANGIOGRAM, AND A STRESS TEST WAS DONE AT [facility]. PATIENT HAS BEEN NON-COMPLIANT WITH MEDICATIONS SINCE PREVIOUS CARDIAC WORK UP EARLIER THIS YEAR. DOCTOR AND MYSELF STRONGLY SUGGEST THAT THE PATIENT REMAIN INPATIENT UNTIL THE RESULTS FROM THE ANGIOCATH ARE AVAILABLE AND THE LIFE VEST IS OBTAINED. PATIENT AND FAMILY WANT TO LEAVE TODAY. DOCTOR EDUCATED PATIENT THAT THIS IS AGAINST MEDICAL ADVICE AND THAT THE PATIENT IS RESPONSIBLE FOR THE HEALTH EFFECTS OF THIS DECISION. PATIENT AND FAMILY VERBALIZED UNDERSTANDING AND REMAINED INPATIENT.
--- NOTE | 2018-12-28 14:30 | NUR ---
PATIENT SIGNED RELEASE OF RECORDS TO OBTAIN PRIOR ANGIOGRAM AND OTHER CARDIAC WORKUP RESULTS. PATIENT NOW STATES THE TESTS WEER DONE AT [facility]. FAXED REQUEST FROM RECORDS TO [facility]. WILL FOLLOW UP WITH DOCTOR ONCE RECORDS ARE AVAILABLE.
--- NOTE | 2018-12-28 15:45 | NUR ---
PATIENT FAMILY WANTS TO KNOW WHEN ANGIOGRAM WILL OCCUR. EXPLAINED THAT IT TAKES TIME TO GET THE LIFEVEST AND THE RECEIVING FACILITY HAS NOT YET PROVIDED TRANSFER INFORMATION. PATIENT AND FAMILY AGREE TO WAIT, BUT CONTINUE TO ASK TO DO THE ANGIOGRAM AN OUTPATIENT. EXPLAIN THAT IT IS RECOMMENDED THAT THE PATIENT REMAIN UNDER CARDIAC MONITORING AND THAT THE TYPE OF ARRHYTHMIAS HE HAD WERE DANGEROUS. PATIENT SHOWS NO SING OF DISTRESS AT THIS TIME. BED IS LOW CALL LIGHT IS IN REACH. WILL CONTINUE TO MONITOR.
[2018-12-28 16:00] VITALS: BP 107/67
--- NOTE | 2018-12-28 16:25 | NUR ---
PATIENT AND FAMILY STATES THEY ARE LEAVING NOW. DOCTOR AT BEDSIDE, RE-EDUCATED PATIENT AND FAMILY ON THE SEVERITY OF HIS HEART CONDITION AND THAT LEAVING AGAINST MEDICAL ADVICE COULD LEAD TO SERIOUS HEART COMPLICATIONS INCLUDING CARDIAC ARREST AND . PATIENT IS STILL CHOOSING TO LEAVE AMA. PATIENT SIGNED AMA FORM. DOCTOR STATES SHE WILL WRITE PRESCRIPTIONS FOR CARDIAC MEDICATIONS TO ENSURE PATIENT HAS THE NECESSARY MEDICATION. PATIENT WILL NEED TO CALL THE [facility] TO CONTINUE WITH ANGIOGRAM AND LIFEVEST OUTPATIENT. PATIENT AWARE.
--- NOTE | 2018-12-28 17:10 | NUR ---
PROVIDED THE FOLLOWING INFORMATION PRIOR TO PATIENT EXIT FROM HOSPITAL: A FOLLOW UP APPOINTMENT HAS BEEN MADE FOR THE PATIENT AT [facility] IN [place], PATIENT IS INSTRUCTED TO OBTAIN A PCP AND CONTINUE ON MEDICATIONS AFTER DISCHARGE. THE DOCTOR WROTE PRESCRIPTIONS FOR ASPIRIN, COREG, LISINOPRIL, ATORVASTATIN, LASIX, ALDACTONE, AND NITROGLYCERIN. PRESCRIPTIONS AND FOLLOWUP APPOINTMENT INFORMATION WAS PROVIDED TO PATIENT AND FAMILY IN PAPER FORMAT. EDUCATED PATIENT AND FAMILY ON THE IMPORTANCE OF THE MEDICATIONS, TIMING AND DOSAGES, AND SIDE EFFECTS. EDUCATED PATIENT AND FAMILY TO CALL 911 IF PATIENT EXPERIENCES CHEST PAIN, SOB, OR ANY LOSS OF CONSCIOUSNESS. PATIENT AND FAMILY VERBALIZED UNDERSTANDING. REMOVED 20 GAUGE IV CATHETER FROM RIGHT AC. REMOVED WRIST BANDS AND TELE MONITOR. PATIENT WALKED OUT OF HOSPITAL ESCORTED BY FAMILY.
== END 2018-12-28 17:10 | disposition left against medical advice (07) | DRG 194 ==
LOC: MED 00:49 → MTU 03:25
PROVIDERS: ADMIT General Practice; ATTEND General Practice
DX: I11.0 Hypertensive heart disease with heart failure (principal); R65.10 Systemic inflammatory response syndrome (SIRS) of non-infectious origin without acute organ dysfunction; I42.0 Dilated cardiomyopathy; I50.43 Acute on chronic combined systolic (congestive) and diastolic (congestive) heart failure; I16.0 Hypertensive urgency; E11.9 Type 2 diabetes mellitus without complications; E66.9 Obesity, unspecified; E78.5 Hyperlipidemia, unspecified; Z53.21 Procedure and treatment not carried out due to patient leaving prior to being seen by health care provider; Z87.891 Personal history of nicotine dependence; Z91.19 Patient's noncompliance with other medical treatment and regimen; Z68.28 Body mass index [BMI] 28.0-28.9, adult
CPT/HCPCS: 36415; 36600; 71045; 76705; 80048; 80053; 80305; 81001; 82150; 82803; 82948; 83036; 83605; 83690; 83735; 83880; 84100; 84436; 84443; 84484; 85025; 85610; 85730; 86704; 86706; 86708; 86709; 86803; 87040; 87081; 87086; 87340; 93005; 99285; J0696; J1940; J7030; J7060; Q0092